=== PATIENT | male | born 1975 | race Caucasian/White ===

== ENCOUNTER → 2018-07-11 | Outpatient (CLI) | payer BC ==
--- NOTE | 2018-07-11 17:04 | Diagnostic Imaging Report ---
Thyroid ultrasound History: Multiple thyroid nodules. Comparison: None Findings: The thyroid echotexture is normal. Vascularity is normal. The right lobe measures 5.2 x 2.9 x 3.3 cm. The left lobe measures 5.3 x 2.2 x 2.8 cm. The isthmus measures 0.5 cm. Nodules (measurements are AP, transverse, craniocaudal): Right Lobe: In the upper/mid pole, there is a 3.8 x 2.6 x 3.1 cm solid, isoechoic, wider than tall, smoothly marginated nodule without associated calcifications. Total 3 points, TR 3. Given size greater than 2.5 cm, this meets criteria for FNA. In the lower pole, there is a 2.3 x 1.7 x 2.1 cm mixed solid cystic, heterogeneously isoechoic, wider than tall nodule with ill-defined margins nodule and no associated calcification. Total 2 points, TR 2. Left Lobe: In the mid pole, there is a 2.1 x 1.9 x 1.8 cm solid nodule that is probably isoechoic, taller than wide, smooth margins, without associated calcification. Total 6 points, TR4. Given size greater than 1.5 cm, this meets criteria for FNA. In the midpole, there is a 1.7 x 1.4 x 1.4 cm mixed solid cystic, isoechoic smoothly marginated nodule without associated calcifications. Total 2 points, TR2. In the midpole, there is a 1.1 x 0.9 x 0.8 cm predominately cystic, smoothly marginated nodule without associated calcifications. Total 1 point. Isthmus: No cystic mass or discrete solid nodule identified. Lymph Nodes: No cervical lymph nodes are identified. Parathyroids: Not visualized. IMPRESSION: Bilateral thyroid nodules as above. The right upper pole and left mid pole solid nodules meet criteria for FNA. ACR glossary of thyroid rads TI-RADS 1: No focal lesion. TI-RADS 2: Not suspicious. TI-RADS 3: Mildly suspicious (recommend FNA is greater than or equal to 2.5 cm; follow-up at 1, 3, and 5 years if greater than or equal to 1.5 cm) TI-RADS 4: Moderately Suspicious (recommend FNA is greater than or equal to 1.5 cm; follow-up at 1, 2, 3, and 5 years) TI-RADS 5: Highly suspicious (recommend FNA is greater than or equal to 10 mm) TI-RADS 6: Biopsy-proven malignancy Signed by: Dr. Brenda Ferguson MD on 07/11/2018 5:01 PM
== END ==
LOC: US 11:46
PROVIDERS: ATTEND Otolaryngology
DX: E04.2 Nontoxic multinodular goiter (principal)
CPT/HCPCS: 76536

== ENCOUNTER → 2018-07-26 | Outpatient (CLI) | payer BC ==
--- NOTE | 2018-07-26 14:45 | Diagnostic Imaging Report ---
Date and Time: 07/26/2018 Procedure: Ultrasound-guided fine-needle aspiration of right and left thyroid nodules rotary shear operator: Dr. Brenner Pre-operative diagnosis: Bilateral suspicious thyroid nodules Post-operative diagnosis: Bilateral suspicious thyroid nodules Conscious Sedation: None The patient's heart rate and pulse oximetry were continuously monitored by the interventional radiology nurse. Blood pressure was monitored at 5 minute intervals. Additional Medications: Lidocaine 1% for local anesthesia Estimated blood loss: Minimal Blood products administered: None Complications: No immediate Specimens: Fine-needle aspiration specimens x3 of right thyroid nodule; fine-needle aspiration specimens x5 of left thyroid nodule Implants: None Condition at completion: Stable Disposition: Discharged home DISCUSSION: Informed consent was obtained and documented in the medical record. Patient was placed in the supine position on the sonographic table. The cervical region was prepped and draped in standard sterile fashion. Attention was first turned to the right thyroid nodule. A suitable percutaneous approach was identified and 1% lidocaine was infiltrated into the skin and subcutaneous tissues for local anesthesia. Then under continuous sonographic guidance a total of 3 fine-needle aspiration specimens were obtained using 25-gauge needles. Specimens were submitted to on-site cytopathology personnel and adequacy was confirmed. Attention was then turned to the left thyroid nodule. Again, a suitable percutaneous approach was identified and 1% lidocaine was infiltrated into the skin and subcutaneous tissues for local anesthesia. Then under continuous sonographic guidance a total of 5 fine needle aspiration specimens were obtained using 25-gauge needles. Specimens were submitted to on-site cytopathology personnel and adequacy was confirmed. At the conclusion of sampling the needle was removed and sterile dressings were applied. The patient tolerated the procedure well without immediate complication. FINDINGS: suspicious bilateral thyroid nodules. IMPRESSION: Successful ultrasound-guided fine-needle aspiration of right and left thyroid nodules as above. Signed by: Dr. Kwasi Brenner M.D. on 07/26/2018 2:42 PM
== END ==
LOC: US 11:32
PROVIDERS: ATTEND Otolaryngology
DX: E04.2 Nontoxic multinodular goiter (principal)
CPT/HCPCS: 10005; 10006; 88112; 88172; 88173; 88305

== ENCOUNTER 2022-06-04 06:42 | Observation (INO) | payer BC ==
[2022-05-28 10:46] LABS: ANION GAP 13.2 mmol/L (8-16); CALCIUM 9.5 mg/dL (8.4-10.2); CREATININE, SERUM 1.13 mg/dL (0.72-1.25); POTASSIUM 4.2 mmol/L (3.5-5.1)
[~2022-06-04] VITALS: Ht 182.9 cm; Wt 112.7 kg
[~2022-06-04 06:42] MED LIST: ACETAMINOPHEN 1000 MG/100 ML 100 ML IV ONE; ATENOLOL50 MG PO; FARXIGA5 MG PO; FENOFIBRATE145 MG PO; HYDROCHLOROTHIA25 MG PO; LACTATED RINGER'S 1,000 ML ONE; LIDOCAINE 1% W/EPINEPHRINE 20 ML VIAL ONE; LOSARTAN POTAS100 MG PO; METFORMIN HCL500 MG PO; SUGAMMADEX SODIUM 200 MG/2 ML VIAL IV ONE; TRAZODONE HCL50 MG PO
[2022-06-04] MEDS ORDERED: DEXMEDETOMIDINE HCL 2 ML ONE (06:58)
[2022-06-04] MEDS ORDERED: DEXTROSE 50% SYRINGE 50 ML IV PRN ×2 (11:00→13:00)
[2022-06-04] MEDS ORDERED: ONDANSETRON HCL INJ 2MG/ML 2ML 2 MG/ML VIAL IV PRN (11:15)
[2022-06-04] MEDS ORDERED: FENTANYL CITRATE/PF 100MCG/2 ML INJ ONE ×2 (11:20→13:49)
[2022-06-04] MEDS ORDERED: FENTANYL CITRATE/PF 100MCG/2 ML INJ IV ONE (11:20)
[2022-06-04] MEDS ORDERED: HYDROMORPHONE 1MG/1ML INJ ONE (11:47)
[2022-06-04] MEDS ORDERED: HYDROMORPHONE 1MG/1ML INJ IV ONE (11:48)
[2022-06-04 12:18] LABS: ALBUMIN 3.9 g/dL (3.5-5.0); CALCIUM 9.2 mg/dL (8.4-10.2)
[2022-06-04 12:31] VITALS: BP 132/92
[2022-06-04] MEDS ORDERED: LIDOCAINE HCL 2% LOCAL INJ 5 ML SDV VIAL INJ ONE (13:03)
[2022-06-04] MEDS ORDERED: DEXAMETHASONE SOD PHOS INJ 4 MG/ML SDV ONE (13:03)
[2022-06-04] MEDS ORDERED: EPHEDRINE SULFATE INJ 50 MG/ML VIAL ONE (13:03)
[2022-06-04] MEDS ORDERED: SEVOFLURANE INHAL SOLN 250 ML PEN BTL ONE (13:03)
[2022-06-04] MEDS ORDERED: PROPOFOL IV EMULSION 10 MG/ML 20 ML VIAL ONE (13:03)
[2022-06-04] MEDS ORDERED: GLYCOPYRROLATE INJ 0.2 MG/ML VIAL ONE (13:03)
[2022-06-04] MEDS ORDERED: ONDANSETRON HCL INJ 2MG/ML 2ML 2 MG/ML VIAL ONE (13:03)
[2022-06-04] MEDS ORDERED: POVIDONE IODINE 0.05% 0.05 % ML PO ONE (13:03)
[2022-06-04 13:26] VITALS: BP 132/92
[2022-06-04 13:33] VITALS: BP 132/92
[2022-06-04] MEDS: SOD CHL 0.45%/POT CHL 20MEQ 1,000 ML IV SCH ×2 (15:13→21:20)
[2022-06-04 15:53] VITALS: BP 139/96
[2022-06-04] MEDS: INSULIN REGULAR, HUMAN 100 UNIT/1 ML SQ SCH ×2 (16:44→20:47)
[2022-06-04] MEDS: HYDROCODONE/APAP 5MG-325MG TAB PO PRN ×2 (16:44→23:35)
[2022-06-04 18:21] LABS: ALBUMIN 3.8 g/dL (3.5-5.0); CALCIUM 9.1 mg/dL (8.4-10.2)
[2022-06-04 19:15] VITALS: BP 136/86
[2022-06-04] MEDS ORDERED: TRAZODONE HCL 50 MG TAB PO PRN (21:00)
[2022-06-04 22:20] VITALS: BP 136/86
[2022-06-04 23:21] LABS: ALBUMIN 3.6 g/dL (3.5-5.0)
[2022-06-05] VITALS: BP 123/84
[2022-06-05 04:00] VITALS: BP 130/87
[2022-06-05] MEDS: SOD CHL 0.45%/POT CHL 20MEQ 1,000 ML IV SCH (05:34)
[2022-06-05] MEDS ORDERED: METFORMIN HCL 500 MG TAB PO SCH (08:00)
[2022-06-05] MEDS ORDERED: levothyroxine PO (08:08)
[2022-06-05 08:15] VITALS: BP 134/93
[2022-06-05] MEDS: INSULIN REGULAR, HUMAN 100 UNIT/1 ML SQ SCH (08:38)
[2022-06-05 08:42] VITALS: BP 134/93
[2022-06-05] MEDS ORDERED: HYDROCHLOROTHIAZIDE 25 MG TAB PO SCH (09:00)
[2022-06-05] MEDS ORDERED: FENOFIBRATE 135 MG PO SCH (09:00)
[2022-06-05] MEDS ORDERED: ATENOLOL 50 MG TAB PO SCH (09:00)
[2022-06-05] MEDS ORDERED: LOSARTAN POTASSIUM 100 MG TAB PO SCH (09:00)
== END 2022-06-05 08:45 | disposition home or self-care (01) ==
LOC: OR 06:42 → PACU V 10:52 → MED/SURG2 12:23
PROVIDERS: ADMIT Otolaryngology; ATTEND Otolaryngology
DX: E04.1 Nontoxic single thyroid nodule (principal); Z01.818 Encounter for other preprocedural examination; Z20.822 Contact with and (suspected) exposure to COVID-19
CPT/HCPCS: 0223U; 36415 ×3; 60270; 80048; 82040; 82310; 82948 ×2; 88307; 93005; C1713 ×2; G0378 ×2; J0131; J0690 ×2; J1100; J1170; J2001; J2405; J2704; J3010; J7121; 88304